=== PATIENT | male | born 1940 | race Caucasian/White ===

== ENCOUNTER 2018-10-21 09:45 | Emergency (ER) | payer MEDICARE, OTHER, SELFPAY ==
[2018-10-21 10:40] VITALS: BP 188/86; PULSE 59; RESP 13; TEMP 36.6; O2SAT 99
[2018-10-21 11:02] LABS: Add Manual Diff / Slide Review NO; Basophils Absolute Auto 100 /uL (0-100); Basophils Percent Auto 0.9 % (0-2); Eosinophils Absolute Auto 200 /uL (0-450); Eosinophils Percent Auto 2.1 % (2-4); Hematocrit 41.5 % (41-53); Hemoglobin 13.7 g/dL (13.5-17.5); Lymphocytes Absolute Auto 1300 /uL (1100-4500); Lymphocytes Percent Auto 15.3 % (25-40); Mean Corpuscular HGB Conc 33.1 % (30-36); Mean Corpuscular Hemoglobin 29.9 PG (26-34); Mean Corpuscular Volume 90.3 fL (80-100); Monocytes Absolute Auto 800 /uL (0-900); Monocytes Percent Auto 9.2 % (3-14); Neutrophils Absolute Auto 6100 /uL (1500-7000); Neutrophils Percent Auto 72.5 % (50-75); Platelet Count 230 X10^3/uL (150-400); Red Cell Distribution Width 14.5 % (11.6-14.8); White Blood Cell Count 8.4 X10^3/uL (4.5-11.0)
[2018-10-21 11:17] LABS: Alanine Aminotransferase 146 IU/L (21-72); Albumin 3.9 g/dL (3.5-5.0); Albumin Globulin Ratio 1.5 (1.0-2.8); Alkaline Phosphatase 235 U/L (38-126); Amylase 51 U/L (30-110); Aspartate Aminotransferase 112 IU/L (17-59); BUN Creatinine Ratio 25.6 (6-22); Bilirubin Total 0.6 mg/dL (0.2-1.3); Blood Urea Nitrogen 23 mg/dL (9-20); Calcium 8.8 mg/dL (8.4-10.2); Carbon Dioxide 30 mmol/L (22-32); Chloride 101 mmol/L (98-107); Estimated Glomerular Filt Rate > 60.0 mL/min (>60); Globulin 2.6 g/dL (1.7-4.1); Glucose 87 mg/dL (80-110); HEMOLYSIS < 15 (0-50); Lipase 60 U/L (23-300); Potassium 3.6 mmol/L (3.4-5.1); Sodium 137 mmol/L (137-145); Total Protein 6.5 g/dL (6.3-8.2)
[2018-10-21 11:45] VITALS: BP 150/81; PULSE 58; RESP 18; O2SAT 97
--- NOTE | 2018-10-21 12:20 | ED.ABDPAIN ---
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 he states he was diagnosed last year, and subsequently declined a Whipple procedure as well as radiation. He states he has had worsening right-sided abdominal pain for the past week. He describes it as aching and worsening. He denies any fevers nausea vomiting diarrhea shortness of breath or chest pain. He denies any dysuria urgency or frequency. the patient stated his right-sided belly pain has been getting worse over the past week. He has not followed up his primary care provider. He is not being followed by anybody regarding his cancer. He does not complain of significant worsening of pain or any precipitating factors to his emergency department visit today, other than he figured he should get his pain investigated. Related Data Home Medications Medication Instructions Recorded Confirmed latanoprost 1 drp OPHTH BID #0 08/16/16 Allergies Allergy/AdvReac Type Severity Reaction Status Date / Time Penicillins [PENICILLINS] Allergy Unknown Unverified 10/21/18 11:04 Review of Systems <SERGIO Bose - Last Filed: 10/21/18 14:22> Review of Systems GENERAL: Denies chills, fatigue, malaise, fever, sweats. HEENT: Denies sinus pain, ear pain, sore throat, difficulty swallowing, dizziness. RESPIRATORY: Denies dyspnea, cough, wheezing, hemoptysis, sputum. CARDIOVASCULAR: Denies chest pain, palpitations, orthopnea, edema, GASTROINTESTINAL: See HPI : Denies dysuria, frequency, incontinence, hematuria, urinary retention. MUSCULOSKELETAL: denies weakness, joint pain, or bony pain SKIN: Denies rash, skin lesions, or other NEUROLOGIC: Denies weakness, headache, numbness, change in speech, confusion, seizures, incoordination. PSYCHIATRIC: No concerning psychosocial issues. 12 point review of systems is negative except for those stated above PFSH <SERGIO Bose - Last Filed: 10/21/18 14:22> Medical History (Updated 10/21/18 @ 13:26 by SERGIO Bose) Cancer (Acute) Surgical History (Updated 10/21/18 @ 12:43 by SERGIO Bose) History of cholecystectomy (Acute) Exam <SERGIO Bose - Last Filed: 10/21/18 14:22> Narrative Exam Narrative: GENERAL: Elderly gentleman lying on stretcher HEAD: Atraumatic. Normocephalic. No temporal or scalp tenderness. EYES: Pupils equal round and reactive. Extraocular motions intact. No scleral icterus. No injection or drainage. ENT: Nose without bleeding, purulent drainage or septal hematoma. Throat without erythema, tonsillar hypertrophy or exudate. Uvula midline. Airway patent. NECK: Trachea midline. No JVD or lymphadenopathy. Supple, nontender, no meningeal signs. CARDIOVASCULAR: Regular rate and rhythm without murmurs, gallops, or rubs. RESPIRATORY: Clear to auscultation. Breath sounds equal bilaterally. No wheezes, rales, or rhonchi. No cough. No increased respiratory effort. GASTROINTESTINAL: Abdomen soft, nondistended. No hepato-splenomegaly, or palpable masses. No guarding. diffusely tender right upper and right lower quadrants. Active bowel sounds all 4 quadrants. EXTREMITIES: No clubbing, cyanosis, or edema. No joint tenderness, effusion, or edema noted. BACK: Nontender without deformity or crepitance. No flank tenderness. NEURO: AOx3. SKIN: No rash or erythema. Initial Vital Signs Initial Vital Signs: Vital Signs Temperature 98 F 10/21/18 10:40 Pulse Rate 59 L 10/21/18 10:40 Respiratory Rate 13 10/21/18 10:40 Blood Pressure 188/86 H 10/21/18 10:40 Pulse Oximetry 99 10/21/18 10:40 <Gwen Mac DO - Last Filed: 10/22/18 11:02> Initial Vital Signs Initial Vital Signs: Vital Signs Temperature 98 F 10/21/18 10:40 Pulse Rate 59 L 10/21/18 10:40 Respiratory Rate 13 10/21/18 10:40 Blood Pressure 188/86 H 10/21/18 10:40 Pulse Oximetry 99 10/21/18 10:40 Course <EMMANUEL Bose-BC - Last Filed: 10/21/18 14:22> Orders Ordered: Discontinued Medications Magnesium Citrate (Magnesium Citrate) 150 ml PO NOW ONE Stop: 10/21/18 13:22 Last Admin: 10/21/18 13:30 Dose: 150 ml Vital Signs - 8 hr 10/21/18 10:40 10/21/18 11:45 10/21/18 13:13 Temperature 98 F Pulse Rate 59 L 58 L 66 Respiratory Rate 13 18 19 Blood Pressure 188/86 H Blood Pressure [Left Arm] 150/81 H 153/95 H Pulse Oximetry 99 97 100 <Gwen Mac DO - Last Filed: 10/22/18 11:02> Orders Ordered: Discontinued Medications Magnesium Citrate (Magnesium Citrate) 150 ml PO NOW ONE Stop: 10/21/18 13:22 Last Admin: 10/21/18 13:30 Dose: 150 ml Vital Signs - 8 hr 10/21/18 10:40 10/21/18 11:45 10/21/18 13:13 Temperature 98 F Pulse Rate 59 L 58 L 66 Respiratory Rate 13 18 19 Blood Pressure 188/86 H Blood Pressure [Left Arm] 150/81 H 153/95 H Pulse Oximetry 99 97 100 MDM - Abdominal Pain <SERGIO Bose - Last Filed: 10/21/18 14:22> Lab Data Result diagrams: 10/21/18 10:50 10/21/18 10:50 Lab Results 10/21/18 10/21/18 Range/Units 10:50 10:50 WBC 8.4 (4.5-11.0) X10^3/uL RBC 4.60 (4.5-5.9) X10^6/uL Hgb 13.7 (13.5-17.5) g/dL Hct 41.5 (41-53) % MCV 90.3 (80-100) fL MCH 29.9 (26-34) PG MCHC 33.1 (30-36) % RDW 14.5 (11.6-14.8) % Plt Count 230 (150-400) X10^3/uL Neut % (Auto) 72.5 (50-75) % Lymph % (Auto) 15.3 L (25-40) % [place] % (Auto) 9.2 (3-14) % Eos % (Auto) 2.1 (2-4) % Baso % (Auto) 0.9 (0-2) % Neut # (Auto) 6100 (9426-6771) /uL Lymph # (Auto) 1300 (8514-0959) /uL [place] # (Auto) 800 (0-900) /uL Eos # (Auto) 200 (0-450) /uL Baso # (Auto) 100 (0-100) /uL Sodium 137 (137-145) mmol/L Potassium 3.6 (3.4-5.1) mmol/L Chloride 101 (98-107) mmol/L Carbon Dioxide 30 (22-32) mmol/L BUN 23 H (9-20) mg/dL Creatinine 0.90 (0.66-1.25) mg/dL Estimated GFR > 60.0 (>60) mL/min BUN/Creatinine Ratio 25.6 H (6-22) Glucose 87 (80-110) mg/dL Calcium 8.8 (8.4-10.2) mg/dL Total Bilirubin 0.6 (0.2-1.3) mg/dL AST 112 H (17-59) IU/L ALT 146 H (21-72) IU/L Alkaline Phosphatase 235 H (38-126) U/L Total Protein 6.5 (6.3-8.2) g/dL Albumin 3.9 (3.5-5.0) g/dL Globulin 2.6 (1.7-4.1) g/dL Albumin/Globulin Ratio 1.5 (1.0-2.8) Amylase 51 (30-110) U/L Lipase 60 (23-300) U/L Point of care testing: Urine Dip Bedside Urine Glucose Negative Bedside Urine Bilirubin - Negative Bedside Urine Ketone - Negative Urine Specific [place] 1.010 Bedside Urine Occult Blood - Negative Bedside Urine pH 6.0 Bedside Urine Protein - Negative Bedside Urine Urobilinogen - Negative Bedside Urine Nitrite - Negative Bedside Urine Leukocytes - Negative Esterase Imaging Data CT scan - abdomen: Radiologist's impression: [address] [address] [address] Scan Report Signed Patient: Juan J Mcbride [facility]#: [id number] : 8Acct:[id number] Age/Sex: 78 / MDate of Service: 10/21/18 Loc: ED Accession Number: [id number] Procedure: CT abdomen pelvis w con Ordering Provider: Carolina Queen PROCEDURE: CT ABDOMEN PELVIS W CON INDICATIONS: right sided abd pain, hx ampullary cancer TECHNIQUE: After the administration of intravenous contrast, 5 mm thick sections acquired from the diaphragm to the symphysis. 5 mm coronal and sagittal reformats were acquired. For radiation dose reduction, the following was used: automated exposure control, adjustment of mA and/or kV according to patient size. COMPARISON: [facility], CT, ABDOMEN/PELVIS WITH CONTRAST, 09/08/2017, 14:56. [facility], US, ABDOMEN COMPLETE, 09/08/2017, 14:19. FINDINGS: Image quality: Excellent. ABDOMEN: Lung bases: Lung bases are clear. Heart size is normal. Solid organs: Liver is normal in size and enhancement. Gallbladder has been removed. Prominent biliary gas is noted. The proximal extra hepatic biliary duct measures 2.2 cm. Proximal to the biliary stent, there is an apparent kink seen in the common bile duct. Pancreas enhances normally. Spleen is normal in size and enhancement. There is generalized thickening seen in the adrenal glands, yet without donnie adrenal nodules. Kidneys demonstrate normal size and enhancement, without hydronephrosis. Peritoneum and bowel: Proximal bowel loops measure up to 3.4 cm. The distal small bowel loops are decompressed. No transition point is identified. No significant free fluid is seen. No free air is seen. A moderate of stool is seen within the colon. Diverticulosis is seen, without findings of active diverticulitis. Nodes and vessels: No retroperitoneal or mesenteric adenopathy by size criteria. There is a 2.4 cm abdominal aortic aneurysm seen. Atherosclerotic calcification is noted. The IVC demonstrates normal caliber. Miscellaneous: No ventral hernias. PELVIS: Genitourinary: Bladder wall thickness is normal. Miscellaneous: No inguinal hernias or adenopathy. Bones: No suspicious bony lesions. No vertebral body compression fractures. Age-appropriate bony degenerative changes are seen. IMPRESSION: Distal biliary stent seen. Proximal to the biliary stent, there is an apparent kink seen within the common bile duct. The proximal extrahepatic bile duct measures 2.2 cm. Relatively prominent biliary gas can be seen. Mild prominence of proximal small bowel loops can be seen. No transition point is identified. The appearance is felt most likely to be related to ileus, although a partial small bowel obstruction is possible. There is a moderate amount of stool seen within the colon. Please correlate with an underlying history of constipation. Incidental note is made of: Generalized thickening of the adrenal glands, yet without focal adrenal nodules Stable 3.4 cm abdominal aortic aneurysm. Diverticulosis is seen, without findings of active diverticulitis. Dictated by: Wayne Lopez M.D. on 10/21/2018 at 11:46 Approved by: Wayne Lopez M.D. on 10/21/2018 at 11:52 MDM Narrative Medical decision making narrative: The patient is an 78-year-old male who presents with right side abdominal pain. he does have a complicated history including carcinoma. CT shows significant constipation and less likely a partial small bowel obstruction. I do not feel this is the case at this point time as he is not nauseous, not vomiting and still having bowel movements. I discussed at length that he needs to follow up with his primary care provider soon as possible, especially given the kink in his common bile duct. His bilirubin is 0.6 at this point time. He was given magnesium citrate in the emergency department to help expedite a bowel movement. I discussed at length measures he can take to help prevent constipation including increasing water, increasing fiber, MiraLax Colace and/or senna. Discussed return precautions, especially given the small chance of a small-bowel obstruction on his CT. Discussed coming back if he has any vomiting with abdominal pain, inability keep down fluids or any acute concerns such as chest pain or shortness of breath. patient has no questions or concerns. <Gwen Mac, DO - Last Filed: 10/22/18 11:02> Lab Data Lab Results 10/21/18 10/21/18 Range/Units 10:50 10:50 WBC 8.4 (4.5-11.0) X10^3/uL RBC 4.60 (4.5-5.9) X10^6/uL Hgb 13.7 (13.5-17.5) g/dL Hct 41.5 (41-53) % MCV 90.3 (80-100) fL MCH 29.9 (26-34) PG MCHC 33.1 (30-36) % RDW 14.5 (11.6-14.8) % Plt Count 230 (150-400) X10^3/uL Neut % (Auto) 72.5 (50-75) % Lymph % (Auto) 15.3 L (25-40) % [place] % (Auto) 9.2 (3-14) % Eos % (Auto) 2.1 (2-4) % Baso % (Auto) 0.9 (0-2) % Neut # (Auto) 6100 (7837-2440) /uL Lymph # (Auto) 1300 (5981-4576) /uL [place] # (Auto) 800 (0-900) /uL Eos # (Auto) 200 (0-450) /uL Baso # (Auto) 100 (0-100) /uL Sodium 137 (137-145) mmol/L Potassium 3.6 (3.4-5.1) mmol/L Chloride 101 (98-107) mmol/L Carbon Dioxide 30 (22-32) mmol/L BUN 23 H (9-20) mg/dL Creatinine 0.90 (0.66-1.25) mg/dL Estimated GFR > 60.0 (>60) mL/min BUN/Creatinine Ratio 25.6 H (6-22) Glucose 87 (80-110) mg/dL Calcium 8.8 (8.4-10.2) mg/dL Total Bilirubin 0.6 (0.2-1.3) mg/dL AST 112 H (17-59) IU/L ALT 146 H (21-72) IU/L Alkaline Phosphatase 235 H (38-126) U/L Total Protein 6.5 (6.3-8.2) g/dL Albumin 3.9 (3.5-5.0) g/dL Globulin 2.6 (1.7-4.1) g/dL Albumin/Globulin Ratio 1.5 (1.0-2.8) Amylase 51 (30-110) U/L Lipase 60 (23-300) U/L Point of care testing: Urine Dip Bedside Urine Glucose Negative Bedside Urine Bilirubin - Negative Bedside Urine Ketone - Negative Urine Specific [place] 1.010 Bedside Urine Occult Blood - Negative Bedside Urine pH 6.0 Bedside Urine Protein - Negative Bedside Urine Urobilinogen - Negative Bedside Urine Nitrite - Negative Bedside Urine Leukocytes - Negative Esterase Discharge Plan Departure Patient Disposition: Home Clinical Impression: Constipation Qualifiers: Constipation type: unspecified constipation type Qualified Code(s): K59.00 - Constipation, unspecified Abdominal pain Qualifiers: Abdominal location: right lower quadrant Qualified Code(s): R10.31 - Right lower quadrant pain Discharge Date/Time: 10/21/18 13:43 Interventions: ED Discharge Assessment Last Done: 10/21/18 13:41 Instructions: Constipation (Alternative Therapy), DI for Abdominal Pain-Adult, DI for Constipation Activity Restrictions/Additional Instructions: Your imaging today shows a kink in your bile duct as well as constipation. They also note some thickening of the adrenal glands, but no masses or nodules. At this point your bilirubin is normal, which is very good. we have given him magnesium citrate to help expedite a bowel movement. He can also take Colace, MiraLax, and or senna all of which are [id number] stool softeners and/or laxatives. Please follow up with primary care provider as soon as possible. Please come back to emergency department for any acute concerns such as worsening abdominal pain, inability keep down fluids, chest pain or shortness of breath. Prescriptions: No Action latanoprost 0.005 % drops 1 drp OPHTH BID Qty: 0 RF: 0 Referrals: Raymon Lackey MD [Primary Care Provider] - <Gwen Mac DO - Last Filed: 10/22/18 11:02> [facility] Attending Chris Attestation: I was immediately available in the department for consultation. Documentation has been reviewed. I agree with assessment and plan.
--- NOTE | 2018-10-21 12:24 | ED_ITS ---
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 he states he was diagnosed last year, and subsequently declined a Whipple procedure as well as radiation. He states he has had worsening right-sided abdominal pain for the past week. He describes it as aching and worsening. He denies any fevers nausea vomiting diarrhea shortness of breath or chest pain. He denies any dysuria urgency or frequency. the patient stated his right-sided belly pain has been getting worse over the past week. He has not followed up his primary care provider. He is not being followed by anybody regarding his cancer. He does not complain of significant worsening of pain or any precipitating factors to his emergency department visit today, other than he figured he should get his pain investigated. Related Data Home Medications Medication Instructions Recorded Confirmed latanoprost 1 drp OPHTH BID #0 08/16/16 Allergies Allergy/AdvReac Type Severity Reaction Status Date / Time Penicillins [PENICILLINS] Allergy Unknown Unverified 10/21/18 11:04 Review of Systems <SERGIO Bose - Last Filed: 10/21/18 14:22> Review of Systems GENERAL: Denies chills, fatigue, malaise, fever, sweats. HEENT: Denies sinus pain, ear pain, sore throat, difficulty swallowing, dizziness. RESPIRATORY: Denies dyspnea, cough, wheezing, hemoptysis, sputum. CARDIOVASCULAR: Denies chest pain, palpitations, orthopnea, edema, GASTROINTESTINAL: See HPI : Denies dysuria, frequency, incontinence, hematuria, urinary retention. MUSCULOSKELETAL: denies weakness, joint pain, or bony pain SKIN: Denies rash, skin lesions, or other NEUROLOGIC: Denies weakness, headache, numbness, change in speech, confusion, seizures, incoordination. PSYCHIATRIC: No concerning psychosocial issues. 12 point review of systems is negative except for those stated above PFSH <SERGIO Bose - Last Filed: 10/21/18 14:22> Medical History (Updated 10/21/18 @ 13:26 by SERGIO Bose) Cancer (Acute) Surgical History (Updated 10/21/18 @ 12:43 by SERGIO Bose) History of cholecystectomy (Acute) Exam <SERGIO Bose - Last Filed: 10/21/18 14:22> Narrative Exam Narrative: GENERAL: Elderly gentleman lying on stretcher HEAD: Atraumatic. Normocephalic. No temporal or scalp tenderness. EYES: Pupils equal round and reactive. Extraocular motions intact. No scleral icterus. No injection or drainage. ENT: Nose without bleeding, purulent drainage or septal hematoma. Throat without erythema, tonsillar hypertrophy or exudate. Uvula midline. Airway patent. NECK: Trachea midline. No JVD or lymphadenopathy. Supple, nontender, no meningeal signs. CARDIOVASCULAR: Regular rate and rhythm without murmurs, gallops, or rubs. RESPIRATORY: Clear to auscultation. Breath sounds equal bilaterally. No wheezes, rales, or rhonchi. No cough. No increased respiratory effort. GASTROINTESTINAL: Abdomen soft, nondistended. No hepato-splenomegaly, or palpable masses. No guarding. diffusely tender right upper and right lower quadrants. Active bowel sounds all 4 quadrants. EXTREMITIES: No clubbing, cyanosis, or edema. No joint tenderness, effusion, or edema noted. BACK: Nontender without deformity or crepitance. No flank tenderness. NEURO: AOx3. SKIN: No rash or erythema. Initial Vital Signs Initial Vital Signs: Vital Signs Temperature 98 F 10/21/18 10:40 Pulse Rate 59 L 10/21/18 10:40 Respiratory Rate 13 10/21/18 10:40 Blood Pressure 188/86 H 10/21/18 10:40 Pulse Oximetry 99 10/21/18 10:40 <Gwen Mac DO - Last Filed: 10/22/18 11:02> Initial Vital Signs Initial Vital Signs: Vital Signs Temperature 98 F 10/21/18 10:40 Pulse Rate 59 L 10/21/18 10:40 Respiratory Rate 13 10/21/18 10:40 Blood Pressure 188/86 H 10/21/18 10:40 Pulse Oximetry 99 10/21/18 10:40 Course <EMMANUEL Bose-BC - Last Filed: 10/21/18 14:22> Orders Ordered: Discontinued Medications Magnesium Citrate (Magnesium Citrate) 150 ml PO NOW ONE Stop: 10/21/18 13:22 Last Admin: 10/21/18 13:30 Dose: 150 ml Vital Signs - 8 hr 10/21/18 10:40 10/21/18 11:45 10/21/18 13:13 Temperature 98 F Pulse Rate 59 L 58 L 66 Respiratory Rate 13 18 19 Blood Pressure 188/86 H Blood Pressure [Left Arm] 150/81 H 153/95 H Pulse Oximetry 99 97 100 <Gwen Mac DO - Last Filed: 10/22/18 11:02> Orders Ordered: Discontinued Medications Magnesium Citrate (Magnesium Citrate) 150 ml PO NOW ONE Stop: 10/21/18 13:22 Last Admin: 10/21/18 13:30 Dose: 150 ml Vital Signs - 8 hr 10/21/18 10:40 10/21/18 11:45 10/21/18 13:13 Temperature 98 F Pulse Rate 59 L 58 L 66 Respiratory Rate 13 18 19 Blood Pressure 188/86 H Blood Pressure [Left Arm] 150/81 H 153/95 H Pulse Oximetry 99 97 100 MDM - Abdominal Pain <SERGIO Bose - Last Filed: 10/21/18 14:22> Lab Data Result diagrams: 10/21/18 10:50 10/21/18 10:50 Lab Results 10/21/18 10/21/18 Range/Units 10:50 10:50 WBC 8.4 (4.5-11.0) X10^3/uL RBC 4.60 (4.5-5.9) X10^6/uL Hgb 13.7 (13.5-17.5) g/dL Hct 41.5 (41-53) % MCV 90.3 (80-100) fL MCH 29.9 (26-34) PG MCHC 33.1 (30-36) % RDW 14.5 (11.6-14.8) % Plt Count 230 (150-400) X10^3/uL Neut % (Auto) 72.5 (50-75) % Lymph % (Auto) 15.3 L (25-40) % [place] % (Auto) 9.2 (3-14) % Eos % (Auto) 2.1 (2-4) % Baso % (Auto) 0.9 (0-2) % Neut # (Auto) 6100 (1930-0236) /uL Lymph # (Auto) 1300 (1831-5893) /uL [place] # (Auto) 800 (0-900) /uL Eos # (Auto) 200 (0-450) /uL Baso # (Auto) 100 (0-100) /uL Sodium 137 (137-145) mmol/L Potassium 3.6 (3.4-5.1) mmol/L Chloride 101 (98-107) mmol/L Carbon Dioxide 30 (22-32) mmol/L BUN 23 H (9-20) mg/dL Creatinine 0.90 (0.66-1.25) mg/dL Estimated GFR > 60.0 (>60) mL/min BUN/Creatinine Ratio 25.6 H (6-22) Glucose 87 (80-110) mg/dL Calcium 8.8 (8.4-10.2) mg/dL Total Bilirubin 0.6 (0.2-1.3) mg/dL AST 112 H (17-59) IU/L ALT 146 H (21-72) IU/L Alkaline Phosphatase 235 H (38-126) U/L Total Protein 6.5 (6.3-8.2) g/dL Albumin 3.9 (3.5-5.0) g/dL Globulin 2.6 (1.7-4.1) g/dL Albumin/Globulin Ratio 1.5 (1.0-2.8) Amylase 51 (30-110) U/L Lipase 60 (23-300) U/L Point of care testing: Urine Dip Bedside Urine Glucose Negative Bedside Urine Bilirubin - Negative Bedside Urine Ketone - Negative Urine Specific [place] 1.010 Bedside Urine Occult Blood - Negative Bedside Urine pH 6.0 Bedside Urine Protein - Negative Bedside Urine Urobilinogen - Negative Bedside Urine Nitrite - Negative Bedside Urine Leukocytes - Negative Esterase Imaging Data CT scan - abdomen: Radiologist's impression: [address] [address] [address] Scan Report Signed Patient: Juan J Mcbride [facility]#: [id number] : 8Acct:[id number] Age/Sex: 78 / MDate of Service: 10/21/18 Loc: ED Accession Number: [id number] Procedure: CT abdomen pelvis w con Ordering Provider: Carolina Queen PROCEDURE: CT ABDOMEN PELVIS W CON INDICATIONS: right sided abd pain, hx ampullary cancer TECHNIQUE: After the administration of intravenous contrast, 5 mm thick sections acquired from the diaphragm to the symphysis. 5 mm coronal and sagittal reformats were acquired. For radiation dose reduction, the following was used: automated exposure control, adjustment of mA and/or kV according to patient size. COMPARISON: [facility], CT, ABDOMEN/PELVIS WITH CONTRAST, 09/08/2017, 14:56. [facility], [place], ABDOMEN COMPLETE, 09/08/2017, 14:19. FINDINGS: Image quality: Excellent. ABDOMEN: Lung bases: Lung bases are clear. Heart size is normal. Solid organs: Liver is normal in size and enhancement. Gallbladder has been removed. Prominent biliary gas is noted. The proximal extra hepatic biliary duct measures 2.2 cm. Proximal to the biliary stent, there is an apparent kink seen in the common bile duct. Pancreas enhances normally. Spleen is normal in size and enhancement. There is generalized thickening seen in the adrenal glands, yet without donnie adrenal nodules. Kidneys demonstrate normal size and enhancement, without hydronephrosis. Peritoneum and bowel: Proximal bowel loops measure up to 3.4 cm. The distal small bowel loops are decompressed. No transition point is identified. No significant free fluid is seen. No free air is seen. A moderate of stool is seen within the colon. Diverticulosis is seen, without findings of active diverticulitis. Nodes and vessels: No retroperitoneal or mesenteric adenopathy by size criteria. There is a 2.4 cm abdominal aortic aneurysm seen. Atherosclerotic calcification is noted. The IVC demonstrates normal caliber. Miscellaneous: No ventral hernias. PELVIS: Genitourinary: Bladder wall thickness is normal. Miscellaneous: No inguinal hernias or adenopathy. Bones: No suspicious bony lesions. No vertebral body compression fractures. Age-appropriate bony degenerative changes are seen. IMPRESSION: Distal biliary stent seen. Proximal to the biliary stent, there is an apparent kink seen within the common bile duct. The proximal extrahepatic bile duct measures 2.2 cm. Relatively prominent biliary gas can be seen. Mild prominence of proximal small bowel loops can be seen. No transition point is identified. The appearance is felt most likely to be related to ileus, although a partial small bowel obstruction is possible. There is a moderate amount of stool seen within the colon. Please correlate with an underlying history of constipation. Incidental note is made of: Generalized thickening of the adrenal glands, yet without focal adrenal nodules Stable 3.4 cm abdominal aortic aneurysm. Diverticulosis is seen, without findings of active diverticulitis. Dictated by: Wayne Lopez M.D. on 10/21/2018 at 11:46 Approved by: Wayne Lopez M.D. on 10/21/2018 at 11:52 [facility] Narrative Medical decision making narrative: The patient is an 78-year-old male who presents with right side abdominal pain. he does have a complicated history including carcinoma. CT shows significant constipation and less likely a partial small bowel obstruction. I do not feel this is the case at this point t carmina as he is not nauseous, not vomiting and still having bowel movements. I discussed at length that he needs to follow up with his primary care provider soon as possible, especially given the kink in his common bile duct. His bilirubin is 0.6 at this point time. He was given magnesium citrate in the emergency department to help expedite a bowel movement. I discussed at length measures he can take to help prevent constipation including increasing water, increasing fiber, MiraLax Colace and/or senna. Discussed return precautions, especially given the small chance of a small-bowel obstruction on his CT. Discussed coming back if he has any vomiting with abdominal pain, inability keep down fluids or any acute concerns such as chest pain or shortness of breath. patient has no questions or concerns. <Gwen Mac, DO - Last Filed: 10/22/18 11:02> Lab Data Lab Results 10/21/18 10/21/18 Range/Units 10:50 10:50 WBC 8.4 (4.5-11.0) X10^3/uL RBC 4.60 (4.5-5.9) X10^6/uL Hgb 13.7 (13.5-17.5) g/dL Hct 41.5 (41-53) % MCV 90.3 (80-100) fL MCH 29.9 (26-34) PG MCHC 33.1 (30-36) % RDW 14.5 (11.6-14.8) % Plt Count 230 (150-400) X10^3/uL Neut % (Auto) 72.5 (50-75) % Lymph % (Auto) 15.3 L (25-40) % [place] % (Auto) 9.2 (3-14) % Eos % (Auto) 2.1 (2-4) % Baso % (Auto) 0.9 (0-2) % Neut # (Auto) 6100 (7541-3344) /uL Lymph # (Auto) 1300 (6367-7236) /uL [place] # (Auto) 800 (0-900) /uL Eos # (Auto) 200 (0-450) /uL Baso # (Auto) 100 (0-100) /uL Sodium 137 (137-145) mmol/L Potassium 3.6 (3.4-5.1) mmol/L Chloride 101 (98-107) mmol/L Carbon Dioxide 30 (22-32) mmol/L BUN 23 H (9-20) mg/dL Creatinine 0.90 (0.66-1.25) mg/dL Estimated GFR > 60.0 (>60) mL/min BUN/Creatinine Ratio 25.6 H (6-22) Glucose 87 (80-110) mg/dL Calcium 8.8 (8.4-10.2) mg/dL Total Bilirubin 0.6 (0.2-1.3) mg/dL AST 112 H (17-59) IU/L ALT 146 H (21-72) IU/L Alkaline Phosphatase 235 H (38-126) U/L Total Protein 6.5 (6.3-8.2) g/dL Albumin 3.9 (3.5-5.0) g/dL Globulin 2.6 (1.7-4.1) g/dL Albumin/Globulin Ratio 1.5 (1.0-2.8) Amylase 51 (30-110) U/L Lipase 60 (23-300) U/L Point of care testing: Urine Dip Bedside Urine Glucose Negative Bedside Urine Bilirubin - Negative Bedside Urine Ketone - Negative Urine Specific [place] 1.010 Bedside Urine Occult Blood - Negative Bedside Urine pH 6.0 Bedside Urine Protein - Negative Bedside Urine Urobilinogen - Negative Bedside Urine Nitrite - Negative Bedside Urine Leukocytes - Negative Esterase Discharge Plan Departure Patient Disposition: Home Clinical Impression: Constipation Qualifiers: Constipation type: unspecified constipation type Qualified Code(s): K59.00 - Constipation, unspecified Abdominal pain Qualifiers: Abdominal location: right lower quadrant Qualified Code(s): R10.31 - Right lower quadrant pain Discharge Date/Time: 10/21/18 13:43 Interventions: ED Discharge Assessment Last Done: 10/21/18 13:41 Instructions: Constipation (Alternative Therapy), DI for Abdominal Pain-Adult, DI for Constipation Activity Restrictions/Additional Instructions: Your imaging today shows a kink in your bile duct as well as constipation. They also note some thickening of the adrenal glands, but no masses or nodules. At this point your bilirubin is normal, which is very good. we have given him magnesium citrate to help expedite a bowel movement. He can also take Colace, MiraLax, and or senna all of which are [id number] stool softeners and/or laxatives. Please follow up with primary care provider as soon as possible. Please come back to emergency department for any acute concerns such as worsening abdominal pain, inability keep down fluids, chest pain or shortness of breath. Prescriptions: No Action latanoprost 0.005 % drops 1 drp OPHTH BID Qty: 0 RF: 0 Referrals: Raymon Lackey MD [Primary Care Provider] - <Gwen Mac DO - Last Filed: 10/22/18 11:02> Cosign ED Attending Chris Attestation: I was immediately available in the department for consultation. Documentation has been reviewed. I agree with assessment and plan.
--- NOTE | 2018-10-21 12:30 | DI.CT.S_ITS ---
PROCEDURE: CT ABDOMEN PELVIS W CON INDICATIONS: right sided abd pain, hx ampullary cancer TECHNIQUE: After the administration of intravenous contrast, 5 mm thick sections acquired from the diaphragm to the symphysis. 5 mm coronal and sagittal reformats were acquired. For radiation dose reduction, the following was used: automated exposure control, adjustment of mA and/or kV according to patient size. COMPARISON: [facility], CT, ABDOMEN/PELVIS WITH CONTRAST, 09/08/2017, 14:56. [facility], [place], ABDOMEN COMPLETE, 09/08/2017, 14:19. FINDINGS: Image quality: Excellent. ABDOMEN: Lung bases: Lung bases are clear. Heart size is normal. Solid organs: Liver is normal in size and enhancement. Gallbladder has been removed. Prominent biliary gas is noted. The proximal extra hepatic biliary duct measures 2.2 cm. Proximal to the biliary stent, there is an apparent kink seen in the common bile duct. Pancreas enhances normally. Spleen is normal in size and enhancement. There is generalized thickening seen in the adrenal glands, yet without donnie adrenal nodules. Kidneys demonstrate normal size and enhancement, without hydronephrosis. Peritoneum and bowel: Proximal bowel loops measure up to 3.4 cm. The distal small bowel loops are decompressed. No transition point is identified. No significant free fluid is seen. No free air is seen. A moderate of stool is seen within the colon. Diverticulosis is seen, without findings of active diverticulitis. Nodes and vessels: No retroperitoneal or mesenteric adenopathy by size criteria. There is a 2.4 cm abdominal aortic aneurysm seen. Atherosclerotic calcification is noted. The IVC demonstrates normal caliber. Miscellaneous: No ventral hernias. PELVIS: Genitourinary: Bladder wall thickness is normal. Miscellaneous: No inguinal hernias or adenopathy. Bones: No suspicious bony lesions. No vertebral body compression fractures. Age-appropriate bony degenerative changes are seen. IMPRESSION: Distal biliary stent seen. Proximal to the biliary stent, there is an apparent kink seen within the common bile duct. The proximal extrahepatic bile duct measures 2.2 cm. Relatively prominent biliary gas can be seen. Mild prominence of proximal small bowel loops can be seen. No transition point is identified. The appearance is felt most likely to be related to ileus, although a partial small bowel obstruction is possible. There is a moderate amount of stool seen within the colon. Please correlate with an underlying history of constipation. Incidental note is made of: Generalized thickening of the adrenal glands, yet without focal adrenal nodules Stable 3.4 cm abdominal aortic aneurysm. Diverticulosis is seen, without findings of active diverticulitis. Dictated by: Wayne Lopez M.D. on 10/21/2018 at 11:46 Approved by: Wayne Lopez M.D. on 10/21/2018 at 11:52
[2018-10-21 13:13] VITALS: BP 153/95; PULSE 66; RESP 19; O2SAT 100
[2018-10-21] MEDS: MAGNESIUM CITRATE 300 ML SOLUTION 150 ML PO (13:30)
== END 2018-10-21 13:43 | disposition home or self-care (01) ==
PROVIDERS: Emergency Medicine; Emergency Provider Nurse Practitioner Family; PCP Family Medicine
DX: K59.00 Constipation, unspecified (principal); R10.31 Right lower quadrant pain
CPT/HCPCS: 36591; 74177; 80053; 81003; 82150; 83690; 85025; 99283; 99284; Q9967

== ENCOUNTER → 2019-05-14 11:43 | Outpatient (CLI) | payer MEDICARE, OTHER, SELFPAY ==
--- NOTE | 2019-05-14 | DI.CT.S_ITS ---
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 5 mm thick coronal and sagittal reformats were performed. For radiation dose reduction, the following was used: automated exposure control, adjustment of mA and/or kV according to patient size. COMPARISON: [facility], CT, CT ABDOMEN PELVIS W CON, 10/21/2018, 12:35. FINDINGS: Image quality: Excellent. ABDOMEN: Lung bases: Multiple new nodules noted in the lung bases bilaterally ranging in size from 2-9 mm highly suspicious for metastatic disease. Heart size is normal. Mitral annulus calcification is noted. Solid organs: Liver is normal in size and enhancement. Gallbladder is absent. A distal biliary stent is stable in position. Kink in the common bile duct at the proximal margin of the biliary stent persists. Common bile duct is dilated to 2.4 cm. Pneumobilia is stable compared to prior examination. Pancreas enhances normally. Spleen is normal in size and enhancement. No adrenal nodules. Kidneys are normal in size and enhancement, without hydronephrosis. Peritoneum and bowel: Stomach, small bowel, and colon loops are normal in caliber and wall thickness. Scattered colonic diverticuli without evidence of diverticulitis. No free air. Trace free fluid noted adjacent to the anterior-inferior margin of the liver. Nodes and vessels: Scattered soft tissue density lesions noted in the right upper quadrant omentum and the abdominal mesentery concerning for metastatic disease. No retroperitoneal adenopathy. 3.4 x 3.7 cm infrarenal abdominal aortic aneurysm is stable. 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 Scattered atherosclerotic calcifications involving the abdominal and pelvic vasculature. Miscellaneous: No ventral hernias. PELVIS: Genitourinary: Bladder wall thickness is normal. Miscellaneous: No inguinal hernias or adenopathy. Bones: No suspicious bony lesions. No vertebral body compression fractures. IMPRESSION: 1. New bilateral lung base pulmonary nodules highly suspicious for metastatic disease. 2. Multiple soft tissue density lesions involving the right upper quadrant omentum in the abdominal mesentery highly suspicious for metastatic disease. 3. Extrahepatic biliary stent stable position compared to 10/21/18. Focal kinking of the common bile duct at the proximal margin of the biliary stent is stable. The common bile duct measures up to 2.4 cm in the current study. 4. Aneurysmal dilatation of the infrarenal abdominal aorta and the bilateral common iliac arteries stable compared to prior exams. 5. Trace right upper quadrant ascites. Dictated by: Camila Nogueira MD, PhD on 05/14/2019 at 17:18 Approved by: Camila Nogueira MD, PhD on 05/14/2019 at 17:34
== END ==
PROVIDERS: PCP Family Medicine; Visit Provider Family Medicine
DX: C24.0 Malignant neoplasm of extrahepatic bile duct (principal); R74.8 Abnormal levels of other serum enzymes; R19.01 Right upper quadrant abdominal swelling, mass and lump; R91.8 Other nonspecific abnormal finding of lung field; K83.8 Other specified diseases of biliary tract; K57.90 Diverticulosis of intestine, part unspecified, without perforation or abscess without bleeding; I71.4 Abdominal aortic aneurysm, without rupture; Z90.49 Acquired absence of other specified parts of digestive tract
CPT/HCPCS: 74177; Q9967

== ENCOUNTER → 2019-09-10 10:01 | Outpatient (CLI) | payer MEDICARE, OTHER, SELFPAY ==
--- NOTE | 2019-09-10 10:38 | DI.CT.S_ITS ---
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 5 mm thick coronal and sagittal reformats were performed. For radiation dose reduction, the following was used: automated exposure control, adjustment of mA and/or kV according to patient size. COMPARISON: [facility], CT, ABDOMEN/PELVIS WITH CONTRAST, 09/08/2017, 14:56. [facility], CT, CT ABDOMEN PELVIS W CON, 10/21/2018, 12:35. [facility], CT, CT ABDOMEN PELVIS W CON, 05/14/2019, 13:07. FINDINGS: Image quality: Excellent. ABDOMEN: Lung bases: There is increase in size of multiple bilateral irregular pulmonary nodules in the lung bases, measuring up to 1.3 cm in the right lower lobe and 1.6 cm and the left lower lobe. The findings are consistent with metastatic disease. Heart size is normal. Solid organs: Evaluation of the liver demonstrates no focal hepatic lesions. The gallbladder is surgically absent. A biliary stent is redemonstrated within the distal common bile duct with an air-fluid level demonstrated throughout the lumen of the stent. There is associated intra-and extra hepatic biliary ductal dilatation with pneumobilia which appear similar to the prior study. There is soft tissue fullness in the region of the ampulla consistent with patient's history of an ampullary mass. There is a cystic collection around the biliary stent which appears similar to slightly increased in size compared to the recent prior studies. There is associated mass effect on the pancreatic duct which measures up to 0.4 cm. The spleen is normal in size. There is thickening of the adrenal glands bilaterally which appear similar to the prior studies. Kidneys demonstrate no hydronephrosis. Peritoneum and bowel: Stomach, small bowel, and colon loops are normal in caliber and wall thickness. There is colonic diverticulosis without acute diverticulitis. No free fluid or air. Nodes and vessels: No retroperitoneal or mesenteric adenopathy. There is fusiform aneurysmal dilatation of the distal abdominal aorta which measures up to 3.0 cm. The proximal common iliac arteries measure up to 2.3 cm on the right and 2.3 cm on the left. Miscellaneous: No ventral hernias. PELVIS: Genitourinary: Bladder wall thickness is normal. There is heterogeneous enlargement of the prostate. Miscellaneous: No inguinal hernias or adenopathy. Bones: No suspicious bony lesions. No vertebral body compression fractures. IMPRESSION: 1. Interval decrease in size of multiple bibasilar pulmonary nodules consistent with progression of metastatic disease. 2. Biliary stent appears similar in position with persistent biliary ductal dilatation and pneumobilia. A cystic collection is redemonstrated around the stent. Soft tissue fullness is demonstrated in the ampulla compatible with patient's reported history of an ampullary mass but incompletely evaluated on the current study. 3. Slight interval increase in pancreatic duct dilatation likely related to mass effect in the pancreatic head. Dictated by: Chandana Diamond M.D. on 09/10/2019 at 17:22 Approved by: Chandana Diamond M.D. on 09/10/2019 at 17:36
[2019-09-10 10:43] LABS: Alanine Aminotransferase 20 IU/L (<50); Albumin 4.2 g/dL (3.5-5.0); Albumin Globulin Ratio 1.4 (1.0-2.8); Alkaline Phosphatase 90 U/L (38-126); Aspartate Aminotransferase 32 IU/L (17-59); BUN Creatinine Ratio 15.1 (6-22); Bilirubin Total 0.7 mg/dL (0.2-1.3); Blood Urea Nitrogen 14 mg/dL (9-20); Calcium 9.6 mg/dL (8.4-10.2); Carbon Dioxide 30 mmol/L (22-32); Chloride 103 mmol/L (98-107); Estimated Glomerular Filt Rate > 60.0 mL/min (>60); Globulin 3.1 g/dL (1.7-4.1); Glucose 107 mg/dL (80-110); HEMOLYSIS < 15 (0-50); Potassium 4.6 mmol/L (3.4-5.1); Sodium 144 mmol/L (137-145); Total Protein 7.3 g/dL (6.3-8.2)
--- NOTE | 2019-10-13 16:15 | ONC.MSW ---
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 Existing pulmonary nodules being watched. Activity: Called pt to confirm that we've received his referral, assess acuity and immediate needs. Was able to confirm an initial consult time with Dr. Bee for , 10/26 at 10:00am. No immediate needs indicated at this time.
== END ==
PROVIDERS: PCP Family Medicine; Referring Provider Family Medicine; Visit Provider Family Medicine
DX: C24.0 Malignant neoplasm of extrahepatic bile duct (principal); R91.8 Other nonspecific abnormal finding of lung field; K83.8 Other specified diseases of biliary tract; K86.89 Other specified diseases of pancreas; I71.4 Abdominal aortic aneurysm, without rupture; K57.90 Diverticulosis of intestine, part unspecified, without perforation or abscess without bleeding; Z90.49 Acquired absence of other specified parts of digestive tract
CPT/HCPCS: 36415; 74177; 80053; Q9967

== ENCOUNTER → 2019-10-27 11:49 | Outpatient (CLI) | payer MEDICARE, OTHER, SELFPAY ==
--- NOTE | 2019-10-27 11:51 | DI.CT.S_ITS ---
PROCEDURE: CT CHEST WO CON INDICATIONS: METASTATIC LUNG CANCER TECHNIQUE: Noncontrast 5 mm thick sections acquired from the pulmonary apices to the posterior costophrenic angles. 1 mm lung window, 5 mm thick coronal and sagittal and 7 mm axial MIP reformats were then acquired. For radiation dose reduction, the following was used: automated exposure control, adjustment of mA and/or kV according to patient size. COMPARISON: , CT, CT ABDOMEN PELVIS W CON, 09/10/2019, 11:20. FINDINGS: Image quality: Excellent. Lungs and pleura: Since the prior study dated 09/10/19 there is interval enlargement of multiple bilateral pulmonary nodules in the lung bases for example image 231/3, 1.8 x 1.3 cm right lower lobe pulmonary nodule previously measured 1.3 x 0.9 cm. And the left lung base, image 262/3 there is a 1.9 x 1.4 cm pulmonary nodule, previously 1.4 x 0.9 cm. Additional multiple bilateral pulmonary nodules are seen throughout the upper and lower lobes in keeping with additional metastatic disease. No acute consolidation. No pleural effusion or pneumothorax. Mediastinum: Heart size is normal. Coronary artery calcifications are present. No pericardial effusion. No mediastinal adenopathy by size criteria. Thoracic aorta and central pulmonary arteries are normal in size. Esophagus is normal in caliber. No hiatal hernia. Bones and chest wall: No suspicious bony lesions. No vertebral body compression fractures. No axillary or supraclavicular adenopathy by size criteria. Thyroid gland negative. Presumed pneumobilia is again redemonstrated IMPRESSION: Widespread bilateral upper and lower lobe metastatic disease with interval enlargement since the prior study dated 09/10/19 as above Coronary disease Additional chronic and incidental findings as above. Dictated by: Alex Lou M.D. on 10/27/2019 at 15:12 Approved by: Alex Lou M.D. on 10/27/2019 at 15:17
[2019-10-27 12:13] LABS: Add Manual Diff / Slide Review NO; Basophils Absolute Auto 100 /uL (0-100); Eosinophils Absolute Auto 200 /uL (0-450); Eosinophils Percent Auto 1.6 % (2-4); Hematocrit 42.3 % (41-53); Hemoglobin 14.1 g/dL (13.5-17.5); Lymphocytes Absolute Auto 1800 /uL (1100-4500); Lymphocytes Percent Auto 18.1 % (25-40); Mean Corpuscular HGB Conc 33.4 % (30-36); Mean Corpuscular Hemoglobin 29.5 PG (26-34); Mean Corpuscular Volume 88.5 fL (80-100); Monocytes Absolute Auto 800 /uL (0-900); Monocytes Percent Auto 8.1 % (3-14); Neutrophils Absolute Auto 7000 /uL (1500-7000); Neutrophils Percent Auto 71.2 % (50-75); Platelet Count 247 X10^3/uL (150-400); Red Blood Cell Count 4.78 X10^6/uL (4.5-5.9); Red Cell Distribution Width 14.5 % (11.6-14.8); White Blood Cell Count 9.8 X10^3/uL (4.5-11.0)
[2019-10-27 12:25] LABS: Alanine Aminotransferase 13 IU/L (<50); Albumin 4.2 g/dL (3.5-5.0); Albumin Globulin Ratio 1.4 (1.0-2.8); Alkaline Phosphatase 93 U/L (38-126); Aspartate Aminotransferase 23 IU/L (17-59); BUN Creatinine Ratio 18.8 (6-22); Bilirubin Total 0.4 mg/dL (0.2-1.3); Blood Urea Nitrogen 16 mg/dL (9-20); Calcium 9.3 mg/dL (8.4-10.2); Carbon Dioxide 33 mmol/L (22-32); Chloride 102 mmol/L (98-107); Estimated Glomerular Filt Rate > 60.0 mL/min (>60); Globulin 2.9 g/dL (1.7-4.1); Glucose 125 mg/dL (80-110); HEMOLYSIS < 15 (0-50); Potassium 4.7 mmol/L (3.4-5.1); Sodium 140 mmol/L (137-145); Total Protein 7.1 g/dL (6.3-8.2)
[2019-10-28 06:00] LABS: Cancer (Carbohydrate) Ag 19-9 14 U/mL (0-35)
== END ==
PROVIDERS: PCP Family Medicine; Referring Provider Internal Medicine Hematology & Oncology; Visit Provider Internal Medicine Hematology & Oncology
DX: C24.1 Malignant neoplasm of ampulla of Vater (principal); C78.01 Secondary malignant neoplasm of right lung; C78.02 Secondary malignant neoplasm of left lung; I25.10 Atherosclerotic heart disease of native coronary artery without angina pectoris; F17.200 Nicotine dependence, unspecified, uncomplicated; F17.220 Nicotine dependence, chewing tobacco, uncomplicated
CPT/HCPCS: 36415; 71250; 80053; 85025; 86301; 99215

== ENCOUNTER → 2019-11-03 09:20 | Oncology outpatient (ONC) | payer MEDICARE, OTHER, SELFPAY ==
--- NOTE | 2019-10-27 10:38 | P.CONONC_ITS ---
History of Present Illness - Data of Consult Patient: new to practice Consult date: 10/27/19 Requesting Physician: Raymon Lackey MD Primary Care Provider: Raymon Lackey MD - Consult Narrative Reason for consult: Ampulary adenocarcinoma Narrative: Juan J Mcbride is a 79 year old male. He admitted to have some gallbladder problems which has been present for about 4-5 years. He underwent cholecystectomy about a year and half later. Patient presented with cholangitis. 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 On 10/11/2017, patient met with Dr. Feliciano. Patient expressed that he was not interested in moving forward with Whipple procedure. On 10/29/2017, Dr. Sam Gordon performed internalization of biliary drain. A transhepatic drain was seen in the major papilla. This was removed during the procedure. The major papilla appeared to be ulcerated secondary to known malignancy. A moderate and biliary stricture was found. The stricture was malignant appearing. Choledocholithiasis was found. Complete removal was accomplished by balloon extraction. One covered metal stent was placed into the common bile duct. On 11/06/2017, PET CT showed a hypermetabolic activity around the distal portion of the extrahepatic billary bile duct stent, presumably representing a malignant neoplasm. No definite FDG avid metastatic disease was evident. 10/24/2018. He was evaluated by Dr. Vieyra at [facility]. On 10/25/2018, patient underwent ERCP by Dr. Carolina. One visibly occluded stent from the biliary tree was seen in the major papilla. The stent appeared to have migrated downstream from its original position. The old stent was removed. The major papilla appeared to be ulcerated at the ambulatory tumor consistent with likely progression of the malignancy. A filling defect consistent with a stone and sludge was seen on the cholangiogram. Complete removal was accomplished by balloon extraction. A mild narrowing was noted in the distal bile duct. One partially covered 10 mm x 14 mm metal stent was placed into the common bile duct. Patient was recommended for Whipple procedure is however patient refused in addition radiation therapy was also recommended. However patient again is concerned about the possible side effects and refused. He was told to live 3-6 months. he did not want to tie down to the hospital. He refused chemotherapy because he does not want to get sick. On 05/14/2019, patient underwent CT abdomen and pelvis. The scan showed new bilateral lung base pulmonary nodules highly is a for metastasis, multiple soft tissue density lesions involving right upper quadrant omentum in the abdominal mesentery highly suspicious for metastatic disease, extrahepatic biliary stent stable position compared to 10/21/2028, focal kingling of the common bile duct at the proximal margin of the biliary stent was stable. The common bile duct me asured up to 2.4 cm in current study. 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 Trace right upper quadrant ascites were noted. On 09/10/2019, patient underwent repeat abdominal CT scan. It showed interval increase in size of multiple bibasilar pulmonary nodules, the biliary stent appeared similar in position with persistent biliary duct dilation and pneumobilia. A cystic collection was redemonstrated around the stent. Soft tissue fullness was demonstrated in the papular compatible with patient's reported history of ambulatory mass but incompletely evaluated on the current study. Slight interval increase pancreatic duct dilation. Patient reports no headache, no double vision and no blurred vision, denies any bone pain. Denies any back the no shoulder pain. No hip pain. Patient has mild knee pain. Patient said that probably is due to old age. He denies any chest pain or shortness of breath. He denies any cough. He denies any nausea or vomiting. Pain denies diarrhea or constipation. However patient does report significant weight loss third previously the way about 240 lb third currently weight about 108 per patient said that he is less because of abdominal pain. 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 Surgical History: Surgical History (Last Updated 10/27/19 @ 11:11 by Constantino Bee MD) History of cholecystectomy History of meniscectomy of left knee Family History: Family History (Last Updated 10/27/19 @ 11:11 by Constantino Bee MD) Family/Other Lung cancer - Social History Smoking Status: Current every day smoker (chewing and smoking) Substance Use Type: does not use Alcohol Intake: never Review of Systems All systems PM: reviewed and no additional remarkable complaints except as stated (those mentioned in HPI and SR above.) Exam Vital signs: 11/01/19 17:22 Last Vital Signs Temp 98.3 F 10/27/19 10:41 Pulse 69 10/27/19 10:41 Resp 16 10/27/19 10:41 BP 125/75 10/27/19 10:41 Pulse Ox 99 10/27/19 10:41 Narrative: ECOG 1 Vitals above reviewed Constitutional: WDWN, well nourished, and well groomed. NAD. Pleasant and cooperative. Accompanied by his daughter HEENT: NCAT, EOMI, PERRLA. Anicteric sclera. Oral mucosa clean, no erythema, no ulcers noted on the oral mucosa, no enlargement of tonsils, and no pharynx secretions noted. Neck: Supple and symmetrical, no palpable masses. No palpable thyromegaly. Respiratory: No use of accessory muscles. CTAB, no wheezes. Cardiovascular: RRR, S1 and S2 normal, no M/G/R. No edema of lower extremities. Abdomen: Soft, mild abdominal pain noted in the right upper quadrant and to the left side of the umbilicus. No muscle guarding. No rebound. NTND, no palpable masses. No palpable hepatosplenomegaly. No hernia. Lymphatic: no palpable palpable lymph nodes in the neck, axillae, or groins. Musculoskeletal: normal gait and station Skin: No rashes, lesions, or ulcers. No induration, or subcutaneous nodules. Neurological: CN II-XII grossly intact. No focal motor or sensory deficit. Psychiatric: Normal judgment and insight. AOx3. Normal memory (recent and remote). Normal mood and affect. Results - Imaging Additional studies: Procedures Injection or infusion of other therapeutic or prophylactic substance (09/20/13) Other electric countershock of heart (05/13/14) Assessment and Plan (1) Primary adenocarcinoma of ampulla of Vater Overview: 79-year-old gentleman with ampulary adenocarcinoma diagnosed in early 2018 status post ERCP with stents placement. However patient refused recommendation of Whipple surgery, radiation therapy or chemotherapy. Since 05/2019, he was found to have disease progression and pulmonary metastasis. Assessment: Patient said that he is here for information about the most recent scans and blood work. I reviewed the CT scans from May 2019 and August 2019. I expla ined to the patient and showed them the images on the computer that the pulmonary nodules noted in both lungs have clearly increased in size and in number. However this is not a CT of the chest and only part the lungs were visible. I would recommend that we obtain a CT the chest without contrast to complete the full staging. In addition I talked with the patient that I will obtain blood samples to check for CA 19-9. I also reviewed the lab results from 10/22/2019. CBC are within normal range. Lipase and amylase were also in the normal range. However there was no tumor markers. Plan: Records from [facility] CT chest w/o contrast CBC, CMP, CA 19-9 RTC in 2 weeks
[2019-10-27 10:41] VITALS: BP 125/75; PULSE 69; RESP 16; TEMP 36.8; O2SAT 99
--- NOTE | 2019-10-27 10:59 | ONC.MSW ---
Description: First F/F Visit Activity: Met with pt and his dtr before their initial consult visit with Dr. Bee. Pt's goal is primarily to get more clarification on the status of his disease progression, prognosis, but not too interested in treatment options. He has had cancer in the past, has lung nodules that have been being monitored for some time. 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 No immediate needs were identified at this time. Will continue to monitor tx plan and next steps.
--- NOTE | 2019-11-03 09:26 | P.PNONC_ITS ---
PN -Subjective Interval history: ID/CC: 79 year old male with adenocarcinoma of the Ampula. HPI: Please refer to my full note dated 10/27/2019. Interval Events: Since his previous visit patient reports is having some problems eating because it goes right through with diarrhea. He also said that his energy level is low. However denies any shortness of breath and denies any pain. Patient underwent CT the chest without contrast. As expected, there were numerous metastasis in both lungs with increases in size and. Remarkably, patient does not have significant shortness of breath. He presents here today to review the CT results. - Patient Self-Reported Symptoms SR Gastrointestinal issues: Change in bowel pattern - Additional ROS All systems PM: reviewed and no additional remarkable complaints except as stated (those mentioned in HIstory of Present Illness, Interval History and Patient Self-Reported Symptoms.) Home Medications and Allergies Home Medications Medication Instructions Recorded Confirmed Type latanoprost 1 drp OPHTH BID #0 08/16/16 10/27/19 History omeprazole 20 mg PO DAILY 10/27/19 10/27/19 History Allergies Allergy/AdvReac Type Severity Reaction Status Date / Time Penicillins [PENICILLINS] Allergy Unknown Unverified 10/21/18 11:04 Exam Vital signs: 11/03/19 23:51 Last Vital Signs Temp 98.2 F 11/03/19 09:29 Pulse 73 11/03/19 09:29 Resp 16 11/03/19 09:29 BP 129/79 11/03/19 09:29 Pulse Ox 99 11/03/19 09:29 Narrative: ECOG 1 Vitals above reviewed Constitutional: WDWN, well nourished, and well groomed. NAD. Pleasant and cooperative. Accompanied by his daughter HEENT: NCAT, EOMI, PERRLA. Anicteric sclera. Neck: Supple and symmetrical, no palpable masses. No palpable thyromegaly. Respiratory: No use of accessory muscles. CTAB, no wheezes. Cardiovascular: RRR, S1 and S2 normal, no M/G/R. No edema of lower extremities. Abdomen: Soft, mild abdominal pain noted in the right upper quadrant and to the left side of the umbilicus. No muscle guarding. No rebound. Lymphatic: no palpable palpable lymph nodes in the neck, axillae, or groins. Musculoskeletal: normal gait and station Skin: No rashes, lesions, or ulcers. No induration, or subcutaneous nodules. Neurological: CN II-XII grossly intact. No focal motor or sensory deficit. Psychiatric: Normal judgment and insight. AOx3. Normal memory (recent and remote). Normal mood and affect. Results - Imaging Additional studies: Procedures Injection or infusion of other therapeutic or prophylactic substance (09/20/13) Other electric countershock of heart (05/13/14) Assessment and Plan (1) Primary adenocarcinoma of ampulla of Vater Overview: 79-year-old gentleman with ampulary adenocarcinoma diagnosed in early 2018 status post ERCP with stents placement. However patient refused recommendation of Whipple surgery, radiation therapy or chemotherapy. Since 05/2019, he was found to have disease progression and pulmonary metastasis. Assessment: Today first of all I reviewed the CT chest with the patient and patient's daughter. I talked with them that there are clearly increasing size and number of the widely metastatic disease in the lung. I also reviewed the CT of the abdomen pelvis results again with them. There are signs indicating growth of his ambulatory cancer with slightly increased pancreatic duct. In addition clinically patient is having more symptoms especially indigestion and significant diarrhea. I talked with them that there is no recommended standard chemotherapy for adeno carcinoma of the ampulla of Vater. I would recommend chemotherapy with FOLFOX 6. I talked with them that it is a relatively well-tolerated chemotherapy. Patient may or may not respond to the treatment. It may help patient prolong progression-free and overall survival. Patient said that initially he was told that he had only 3-6 months to live. Surprisingly patient has lived much longer than was initially anticipated. He was diagnosed in August of 2017. Up until now it is almost 2 years. Patient said that he is quite satisfied with the results already. He does not want to be tied down by chemotherapy or hospital or physician visits. And he understood perfectly that without treatment, he is expected to see more symptoms including possibly respiratory symptoms and gastrointestinal symptoms for example cholangioinfection again, more abdominal pain, and shortness of breath or chest pain etc.. However he said he fully expected and understood. I also talked with the patient and his daughter about possible palliative and hospice care. Patient said that he is not ready yet. As far as the diarrhea is concerned, I recommended Imodium therapy to see if that can be of some help. Patient voiced understanding. I will see the patient in about 2 weeks as a follow-up. Plan: CBC, CMP, CA 19-9 RTC in 2 weeks
[2019-11-03 09:29] VITALS: BP 129/79; PULSE 73; RESP 16; TEMP 36.8; O2SAT 99
--- NOTE | 2020-01-20 15:23 | PC.NURSE ---
SEVERE PAIN: DAUGHTER CALLED REPORTING PATIENT HAVING TROUBLE GETTING OUT OF BED AND EVEN TALKING DUE TO SEVERE ABDOMINAL PAIN. THIS NURSE CALLED PATIENT WHO STATED STABBING PAIN OF 10/10, HYDROCODONE AT FIRST BROUGHT IT DOWN TO 4/10 FOR A SHORT PERIOD, SECOND PILL DID NOT HELP. PATIENT HAD DECIDED AGAINST ANY TREATMENT PER LAST VISIT NOTE, DR CARTER HAD SPOKE WITH HIM ABOUT PROBABLE INCREASING PAIN. PATIENT HAD ONLY TWO PAIN PILLS LEFT. DR GALVAN PRESCRIBED OXYCODON WHICH DAUGHTER WAS INFORMED TO SIMULATION TECHNICIAN AT [facility]. MACHINE SHOP WORKER INFORMED OF NEED FOR HOSPICE EDUCATION AND SHE HAD DISCUSSION WITH DAUGHTER AND PATIENT. DAUGHTER AND PATIENT INFORMED TO MAKE AN APPOINTMENT WITH DR CARTER SOON POSSIBLE IF THEY DECIDE AGAINST HOSPICE SO THAT PAIN CAN BE MANAGED.
--- NOTE | 2020-01-20 16:02 | PC.NURSE ---
BOWEL HEALTH R/T NARCOTICS: PATIENT STATED LAST GOOD BM ON SUNDAY AND THAT HE HAS EATEN ONLY SMALL AMOUNTS SINCE THEN. HE STATES HE IS AWARE OF NARCOTICS CAUSING CONSTIPATION. ADVISED TO USE A STOOL SOFTENER AND PRUNE JUICE AND THAT HOSPICE WILL ASSIST HIM WITH PAIN AND BOWEL MANAGEMENT TO WHICH HE STATED THE SOONER HOSPICE THE BETTER. HE STATED ALSO HE IS AWARE HE NEEDS TO BE DRINKING PLENTY THO FINDS IT DIFFICULT. HE STATED HE WOULD HAVE DAUGHTER BRING HIM STOOL SOFTENER.
--- NOTE | 2020-01-21 14:25 | PC.NURSE ---
Addendum entered by Johana Barraza R.N. 01/21/20 16:03: Pt's daughter reports picking up RX Zofran and that pt's nausea is well controlled at time of phone call. Original Note: Spoke with pt and pt's daughter, Pooja, several times throughout the day r/t n/v. Pt reported having blood with emesis this morning. Pooja states he does not want to go to the ER. Hospice informational completed over the phone per Susan. Pt reports not being able to keep anything down. According to Pooja pt had a quarter of an edible last night and was able to sleep really well. It helped with his pain too. Discussed cannabis/edibles with Pooja and its anti-nausea effects. According to Pooja each edible contains the lowest amount of THC, 1mg. Pt did take another quarter of edible today for nausea with good result. This RN discussed with Pooja to caution frequent dosing of edible r/t pt's age and slower metabolizing of medications, Pooja verbalized understanding. Also let Pooja know that Zofran ODT had been called into [facility], voiced understanding.
== END ==
PROVIDERS: PCP Family Medicine; Referring Provider Family Medicine; Visit Provider Internal Medicine Hematology & Oncology
DX: C24.1 Malignant neoplasm of ampulla of Vater (principal); C78.01 Secondary malignant neoplasm of right lung; C78.02 Secondary malignant neoplasm of left lung
CPT/HCPCS: 99205; 99214; 99215